=== PATIENT | female | born 1940 | race Caucasian/White ===

== ENCOUNTER 2016-10-16 08:18 | Outpatient (CLI) | payer MEDICARE, OTHER | END 2016-10-16 08:19 | disposition home or self-care (01) | LOC: DI 08:18 | PROVIDERS: ATTEND Internal Medicine | DX: Z01.810 Encounter for preprocedural cardiovascular examination (principal); I77.810 Thoracic aortic ectasia; I51.7 Cardiomegaly | CPT/HCPCS: 93306 ==